=== PATIENT | female | born 1950 | race Native Hawaiian/Other Pacific Islander ===

== ENCOUNTER 2017-03-16 07:57 | Outpatient (CLI) | payer OTHER ==
[~2017-03-16 07:57] MED LIST: AMIT25TA22 PO; BENZ100C8 PO; DICL1GEL2 TOP; FLUOXETINE20 M2 PO; GABA300C2 PO; LISI5TAB10 PO; NIRAVAM0.5 MG PO; NUCYNTA50 MG PO; TEMA30CA18 PO; TIZA4TAB5 PO; TRAZ50TA36 PO; XODOL PO
== END 2017-03-16 09:00 | disposition home or self-care (01) ==
LOC: CT 07:57
DX: R10.815 Periumbilic abdominal tenderness (principal)

== ENCOUNTER 2017-11-24 13:10 | Outpatient (CLI) | payer OTHER | END 2017-11-24 22:19 | disposition home or self-care (01) | LOC: RAD 13:10 | DX: R07.81 Pleurodynia (principal) ==

== ENCOUNTER 2017-12-12 21:17 | Observation (INO) | payer OTHER ==
[~2017-12-12] VITALS: Ht 152.4 cm; Wt 76.8 kg
[2017-12-12 21:29] VITALS: BP 124/89; TEMP 98.2
[2017-12-12 21:47] LABS: PLATELET COUNT 350 K/uL (152-353)
[2017-12-12 21:56] LABS: POTASSIUM 3.7 mmol/L (3.6-5.2); SODIUM 137 mmol/L (136-145)
[2017-12-12 22:08] LABS: PARTIAL THROMBOPLASTIN TIME 23.5 SECONDS (24.5-33.6)
[2017-12-12] MEDS ORDERED: GABA300C2 PO (23:05)
[2017-12-12 23:10] VITALS: BP 99/65; TEMP 98
[2017-12-13 00:37] VITALS: BP 97/70; TEMP 97.8; Ht 152.4 cm; Wt 76.8 kg
--- NOTE | 2017-12-13 01:06 | NUR ---
12/12/17 2322 TO ROOM 1107 PLACED IN BED VITAL SIGNS OBTAINED SALINE LOCK INTACT TO RIGHT AC 20GAUDGE.PT SAID HER PAIN IS BETTER BUT IS STILL HAVING SOME PAIN 3 ON SCALE 1- 10 UNDER LEFT BREAST.PT SAID SHE IS READY TO GO HOME NOW.EXPLAINED TO PT THAT SHE CAN SPEAK WITH PHYSICAN IN THE MORNING IF EVERYTHING CHECKS OUT SHE MAY GET TO GO THEN.PT VERBALIZED UNDERSTANDING.CC
[2017-12-13 04:00] VITALS: BP 115/76; TEMP 97.6
[2017-12-13 08:00] VITALS: BP 115/72; TEMP 98.6
== END 2017-12-13 16:10 | disposition home or self-care (01) ==
LOC: ED 21:17 → MED/SURG 22:49
DX: R07.89 Other chest pain (principal); I25.10 Atherosclerotic heart disease of native coronary artery without angina pectoris; R06.02 Shortness of breath; R10.11 Right upper quadrant pain; D72.828 Other elevated white blood cell count
CPT/HCPCS: 36415; 80053; 82550; 84484; 85027; 85610; 85730; 93005; 96365; 96372; 99220; 99283; G0378; J1650; J2270

== ENCOUNTER 2018-01-21 15:53 | Outpatient (CLI) | payer OTHER | END 2018-01-21 19:10 | disposition home or self-care (01) | LOC: LAB 15:53 | DX: K59.1 Functional diarrhea (principal); R10.13 Epigastric pain | CPT/HCPCS: 82705; 87015; 87045; 87205; 87324; 87328; 87329; 87338; 87449; 87899 ==

== ENCOUNTER 2018-03-28 10:47 | Outpatient (CLI) | payer OTHER | END 2018-03-28 22:49 | disposition home or self-care (01) | LOC: CT 10:47 | DX: M54.5 Low back pain (principal); M79.7 Fibromyalgia; M54.16 Radiculopathy, lumbar region ==

== ENCOUNTER 2018-08-25 08:56 | Outpatient (CLI) | payer OTHER | END 2018-08-25 19:47 | disposition home or self-care (01) | LOC: US 08:56 | DX: E03.8 Other specified hypothyroidism (principal) ==

== ENCOUNTER 2019-02-21 09:40 | Outpatient (CLI) | payer OTHER | END 2019-02-21 22:23 | disposition home or self-care (01) | LOC: RAD 09:40 | DX: R13.19 Other dysphagia (principal) ==

== ENCOUNTER 2019-04-05 14:47 | Emergency (ER) | payer OTHER ==
[~2019-04-05] VITALS: Ht 152.4 cm; Wt 73.5 kg
[2019-04-05 16:03] LABS: PLATELET COUNT 313 K/uL (152-353)
[2019-04-05 16:11] LABS: POTASSIUM 3.8 mmol/L (3.6-5.2)
[2019-04-05 17:10] VITALS: BP 154/89; TEMP 97.8
== END 2019-04-05 17:10 | disposition home or self-care (01) ==
LOC: ED 14:47
PROVIDERS: Hospitalist
DX: M54.5 Low back pain (principal); R10.32 Left lower quadrant pain
CPT/HCPCS: 36415; 80053; 81000; 85027; 96360; 96375; 99284; J1885; J2270; J2405

== ENCOUNTER 2019-05-28 12:58 | Outpatient (CLI) | payer OTHER | END 2019-05-28 20:39 | disposition home or self-care (01) | LOC: RAD 12:58 | DX: R60.0 Localized edema (principal) ==

== ENCOUNTER 2019-06-07 17:02 | Emergency (ER) | payer OTHER ==
[~2019-06-07] VITALS: Ht 152.4 cm; Wt 73.5 kg
[2019-06-07 17:14] VITALS: TEMP 98.6
[2019-06-07 18:04] VITALS: BP 124/72
== END 2019-06-07 18:10 | disposition home or self-care (01) ==
LOC: ED 17:02
DX: M79.672 Pain in left foot (principal); M79.671 Pain in right foot; W20.8XXA Other cause of strike by thrown, projected or falling object, initial encounter; Y92.512 Supermarket, store or market as the place of occurrence of the external cause
CPT/HCPCS: 96372; 99283; J1885

== ENCOUNTER 2019-10-03 14:17 | Outpatient (CLI) | payer OTHER | END 2019-10-03 19:37 | disposition home or self-care (01) | LOC: MAMMO 14:17 | DX: R92.8 Other abnormal and inconclusive findings on diagnostic imaging of breast (principal); N63.20 Unspecified lump in the left breast, unspecified quadrant ==

== ENCOUNTER 2020-01-04 15:15 | Outpatient (CLI) | payer OTHER | END 2020-01-04 19:30 | disposition home or self-care (01) | LOC: RAD 15:15 | DX: M19.072 Primary osteoarthritis, left ankle and foot (principal) ==

== ENCOUNTER 2020-04-09 11:21 | Day surgery (SDC) | payer OTHER ==
[2020-04-09 12:06] LABS: PLATELET COUNT 361 K/uL (152-353)
== END 2020-04-09 14:37 | disposition home or self-care (01) ==
LOC: OR 11:21
PROVIDERS: Internal Medicine Gastroenterology
PROC: 0DB68ZZ Excision of Stomach, Via Natural or Artificial Opening Endoscopic (ICD-10-PCS; principal; 2020-04-09)
PROC: 0DB88ZZ Excision of Small Intestine, Via Natural or Artificial Opening Endoscopic (ICD-10-PCS; 2020-04-09)
PROC: 0D738ZZ Dilation of Lower Esophagus, Via Natural or Artificial Opening Endoscopic (ICD-10-PCS; 2020-04-09)
DX: K22.10 Ulcer of esophagus without bleeding (principal); K21.0 Gastro-esophageal reflux disease with esophagitis; K22.2 Esophageal obstruction; K44.9 Diaphragmatic hernia without obstruction or gangrene; K25.9 Gastric ulcer, unspecified as acute or chronic, without hemorrhage or perforation; K29.50 Unspecified chronic gastritis without bleeding; R13.19 Other dysphagia; R11.2 Nausea with vomiting, unspecified; R10.13 Epigastric pain
CPT/HCPCS: 80053; 85027; J2704

== ENCOUNTER 2020-04-30 13:31 | Outpatient (CLI) | payer OTHER | END 2020-04-30 20:27 | disposition home or self-care (01) | LOC: LAB 13:31 | DX: R10.9 Unspecified abdominal pain (principal); R14.0 Abdominal distension (gaseous); Z86.19 Personal history of other infectious and parasitic diseases; R11.2 Nausea with vomiting, unspecified | CPT/HCPCS: 36415; 80074; 83735; 86318 ==

== ENCOUNTER 2020-05-09 08:27 | Outpatient (CLI) | payer OTHER | END 2020-05-09 19:39 | disposition home or self-care (01) | LOC: CT 08:27 | PROVIDERS: ATTEND Family Medicine | DX: R14.0 Abdominal distension (gaseous) (principal); E03.4 Atrophy of thyroid (acquired); R10.9 Unspecified abdominal pain ==

== ENCOUNTER 2020-07-08 09:51 | Outpatient (CLI) | payer OTHER ==
[2020-07-08 10:22] LABS: PLATELET COUNT 337 K/uL (152-353)
[2020-07-08 10:35] LABS: POTASSIUM 4.3 mmol/L (3.6-5.2)
== END 2020-07-08 20:26 | disposition home or self-care (01) ==
LOC: LABW 09:51
PROVIDERS: Family Medicine
DX: E03.8 Other specified hypothyroidism (principal); R19.4 Change in bowel habit; R60.0 Localized edema; E55.9 Vitamin D deficiency, unspecified
CPT/HCPCS: 36415; 80053; 80061; 82306; 83735; 84436; 84443; 84479; 85027

== ENCOUNTER 2020-08-19 01:53 | Emergency (ER) | payer OTHER ==
[~2020-08-19] VITALS: Ht 152.4 cm; Wt 73.5 kg
[2020-08-19 03:45] VITALS: BP 106/55; TEMP 98
== END 2020-08-19 03:45 | disposition home or self-care (01) ==
LOC: ED 01:53
DX: T78.49XA Other allergy, initial encounter (principal)
CPT/HCPCS: 94664; 96360; 96375; 99284; J1100; J1200

== ENCOUNTER 2020-11-06 10:09 | Outpatient (CLI) | payer OTHER | END 2020-11-06 20:44 | disposition home or self-care (01) | LOC: RAD 10:09 | PROVIDERS: ATTEND Nurse Practitioner Family | DX: N95.8 Other specified menopausal and perimenopausal disorders (principal); M19.90 Unspecified osteoarthritis, unspecified site ==

== ENCOUNTER 2021-03-25 10:02 | Outpatient (CLI) | payer OTHER | END 2021-03-25 23:02 | disposition home or self-care (01) | LOC: RESP 10:02 | PROVIDERS: ATTEND Specialist | DX: R06.02 Shortness of breath (principal) ==

== ENCOUNTER 2022-07-22 12:41 | Outpatient (CLI) | payer OTHER | END 2022-07-22 19:16 | disposition home or self-care (01) | LOC: US 12:41 | PROVIDERS: ATTEND Nurse Practitioner Family | DX: E04.1 Nontoxic single thyroid nodule (principal) ==

== ENCOUNTER 2022-08-10 09:19 | Emergency (ER) | payer OTHER ==
[~2022-08-10] VITALS: Ht 152.4 cm; Wt 73.5 kg
[2022-08-10 09:31] VITALS: BP 148/79; TEMP 99.1
== END 2022-08-10 10:23 | disposition home or self-care (01) ==
LOC: ED 09:19
DX: S70.11XA Contusion of right thigh, initial encounter (principal); S70.01XA Contusion of right hip, initial encounter; S00.83XA Contusion of other part of head, initial encounter; S06.0X0A Concussion without loss of consciousness, initial encounter; W17.89XA Other fall from one level to another, initial encounter; Y92.098 Other place in other non-institutional residence as the place of occurrence of the external cause
CPT/HCPCS: 96372; 99283; J2270; J2550

== ENCOUNTER 2022-12-21 10:09 | Outpatient (CLI) | payer OTHER ==
[2022-12-21 10:26] LABS: PLATELET COUNT 338 K/uL (152-353)
[2022-12-21 10:30] LABS: POTASSIUM 4.2 mmol/L (3.6-5.2)
== END 2022-12-21 20:29 | disposition home or self-care (01) ==
LOC: LABW 10:09
PROVIDERS: ATTEND Nurse Practitioner Family
DX: I10 Essential (primary) hypertension (principal)
CPT/HCPCS: 36415; 80053; 82550; 82553; 84484; 85027

== ENCOUNTER 2023-01-23 09:51 | Emergency (ER) | payer OTHER ==
[~2023-01-23] VITALS: Ht 149.9 cm; Wt 72.6 kg
[2023-01-23 10:00] VITALS: TEMP 97.9
[2023-01-23 11:00] LABS: PLATELET COUNT 335 K/uL (152-353)
[2023-01-23 11:14] LABS: POTASSIUM 4.4 mmol/L (3.6-5.2)
[2023-01-23 15:01] VITALS: BP 136/84
== END 2023-01-23 16:39 | disposition home or self-care (01) ==
LOC: ED 09:51
PROVIDERS: Family Medicine
DX: K57.92 Diverticulitis of intestine, part unspecified, without perforation or abscess without bleeding (principal); R10.84 Generalized abdominal pain; R06.02 Shortness of breath
CPT/HCPCS: 80053; 81002; 82150; 83605; 83690; 83880; 84484; 85027; 85379; 93005; 96361; 96365; 96374; 99284; J2270; J2405

== ENCOUNTER 2023-01-29 07:25 | Outpatient (CLI) | payer OTHER ==
[2023-01-29 08:11] LABS: POTASSIUM 4.7 mmol/L (3.6-5.2)
[2023-01-29 08:55] LABS: PLATELET COUNT 458 K/uL (152-353)
== END 2023-01-29 19:07 | disposition home or self-care (01) ==
LOC: LABW 07:25
PROVIDERS: ATTEND Internal Medicine Cardiovascular Disease
DX: Z79.899 Other long term (current) drug therapy (principal)
CPT/HCPCS: 36415; 80053; 80061; 84443; 85007; 85027

== ENCOUNTER 2023-02-09 11:22 | Observation (INO) | payer OTHER ==
[~2023-02-09] VITALS: Ht 149.9 cm; Wt 76.2 kg
[2023-02-09 11:22] VITALS: BP 150/82; TEMP 98.1
[~2023-02-09 11:22] MED LIST changes: +GABA400C2 PO
[2023-02-09 12:04] LABS: PLATELET COUNT 240 K/uL (152-353)
[2023-02-09 12:13] LABS: POTASSIUM 4.1 mmol/L (3.6-5.2)
[2023-02-09 12:40] VITALS: BP 92/61
[2023-02-09 15:34] VITALS: BP 115/64; TEMP 98.9; Ht 149.9 cm; Wt 76.2 kg
[2023-02-09] MEDS ORDERED: ELIQUIS5 MG PO (15:39)
[2023-02-09] MEDS ORDERED: LISI5TAB10 PO (15:40)
[2023-02-09] MEDS ORDERED: QUETIAPINE50 MG PO (15:40)
[2023-02-09] MEDS ORDERED: NORCO 10/325***1 TAB PO (15:40)
[2023-02-09] MEDS ORDERED: MONT10TA PO (15:41)
[2023-02-09 20:00] VITALS: BP 124/64; TEMP 97.7
[2023-02-10] VITALS: BP 106/57; TEMP 98.1
[2023-02-10 04:00] VITALS: BP 122/62; TEMP 98.1
[2023-02-10 05:03] LABS: PLATELET COUNT 197 K/uL (152-353)
[2023-02-10 05:29] LABS: POTASSIUM 3.7 mmol/L (3.6-5.2)
[2023-02-10 08:00] VITALS: BP 113/66; TEMP 97.3
[2023-02-10 12:00] VITALS: BP 117/59; TEMP 97.7
[2023-02-10 16:00] VITALS: BP 117/60; TEMP 98
[2023-02-10 20:00] VITALS: BP 111/66; TEMP 98.2
[2023-02-11] VITALS: BP 119/63; TEMP 98.3
[2023-02-11 04:00] VITALS: BP 104/51; TEMP 98.5
[2023-02-11 07:57] VITALS: BP 133/70; TEMP 98
[2023-02-11] MEDS ORDERED: AZIT250T3 PO (09:44)
[2023-02-11] MEDS ORDERED: BUSPIRONE10 MG PO (09:44)
[2023-02-11] MEDS ORDERED: PRED20TA27 PO (09:44)
[2023-02-11] MEDS ORDERED: [UNRECOGNIZED DRUG - OTHER] PO (09:49)
[2023-02-11] MEDS ORDERED: [UNRECOGNIZED DRUG - CODE] PO (10:27)
== END 2023-02-11 10:47 | disposition home or self-care (01) ==
LOC: ED 11:22 → MED/SURG 13:35
PROVIDERS: ADMIT Emergency Medicine Emergency Medical Services; ATTEND Internal Medicine
DX: J18.9 Pneumonia, unspecified organism (principal); T59.81 Toxic effect of smoke; J44.1 Chronic obstructive pulmonary disease with (acute) exacerbation; I48.91 Unspecified atrial fibrillation; Z79.01 Long term (current) use of anticoagulants; F41.9 Anxiety disorder, unspecified; R07.89 Other chest pain; R06.02 Shortness of breath; R05.3 Chronic cough
CPT/HCPCS: 36415; 80053; 83605; 83735; 83880; 84439; 84443; 84484; 85027; 85610; 85730; 87040; 87070; 87077; 87205; 87502; 87635; 93005; 94664; 94760; 96361; 96365; 96367; 96374; 96375; 96376; 99221; 99284; G0378; J0456; J0696; J2405; J2920; J2930; U0003

== ENCOUNTER 2023-06-22 10:36 | Observation (INO) | payer OTHER ==
[~2023-06-22] VITALS: Ht 149.9 cm; Wt 75.9 kg
[~2023-06-22 10:36] MED LIST changes: +AZIT250T3 PO; +BUSPIRONE10 MG PO; +ELIQUIS5 MG PO; +MONT10TA PO; +NORCO 10/325***1 TAB PO; +PRED20TA27 PO; +QUETIAPINE50 MG PO; +[UNRECOGNIZED DRUG - CODE] PO; +[UNRECOGNIZED DRUG - OTHER] PO
[2023-06-22 10:40] VITALS: BP 134/74; TEMP 98.2
[2023-06-22 11:12] LABS: PLATELET COUNT 299 K/uL (152-353)
[2023-06-22 11:24] LABS: PARTIAL THROMBOPLASTIN TIME 33.4 SECONDS (23.9-36.7)
[2023-06-22 11:25] LABS: POTASSIUM 4.2 mmol/L (3.6-5.2)
[2023-06-22 14:40] VITALS: BP 129/60; TEMP 97.7
[2023-06-22 17:13] VITALS: BP 129/60; TEMP 97.7; Ht 149.9 cm; Wt 75.9 kg
[2023-06-22] MEDS ORDERED: XARELTO20 MG PO (18:43)
[2023-06-22] MEDS ORDERED: PERCOCET1 TA3 PO (18:44)
[2023-06-22] MEDS ORDERED: ROSU10TA PO (18:45)
[2023-06-22] MEDS ORDERED: FURO20TA67 PO (18:46)
[2023-06-22] MEDS ORDERED: SPIRONOLACT25 MG PO (18:46)
[2023-06-22] MEDS ORDERED: HYDROCHLOROT12.5 M1 PO (18:51)
[2023-06-22] MEDS ORDERED: ALPR0.2566 PO (18:52)
[2023-06-22] MEDS ORDERED: TIZANIDINE HYDRO4 MG PO (18:53)
[2023-06-22 20:00] VITALS: BP 132/68; TEMP 97.8
[2023-06-23] VITALS: BP 145/73; TEMP 98.3
[2023-06-23 04:00] VITALS: BP 104/64; TEMP 98.3
[2023-06-23 07:41] VITALS: BP 106/55; TEMP 97.7
== END 2023-06-23 10:48 | disposition home or self-care (01) ==
LOC: ED 10:36 → MED/SURG 12:56
PROVIDERS: ADMIT Family Medicine; ATTEND Internal Medicine
DX: R07.89 Other chest pain (principal); I48.91 Unspecified atrial fibrillation; E78.49 Other hyperlipidemia; G62.89 Other specified polyneuropathies; F41.8 Other specified anxiety disorders; G89.4 Chronic pain syndrome; Z79.01 Long term (current) use of anticoagulants
CPT/HCPCS: 36415; 80053; 80307; 81000; 82550; 83690; 84484; 85027; 85610; 85730; 93005; 99221; 99284; G0378; J1650; J2270

== ENCOUNTER 2023-08-05 09:22 | Outpatient (CLI) | payer OTHER ==
[~2023-08-05 09:22] MED LIST changes: +ALPR0.2566 PO; +FURO20TA67 PO; +HYDROCHLOROT12.5 M1 PO; +PERCOCET1 TA3 PO; +ROSU10TA PO; +SPIRONOLACT25 MG PO; +TIZANIDINE HYDRO4 MG PO; +XARELTO20 MG PO
== END 2023-08-05 19:23 | disposition home or self-care (01) ==
LOC: MAMMO 09:22
PROVIDERS: ATTEND Nurse Practitioner Family
DX: N63.31 Unspecified lump in axillary tail of the right breast (principal)
CPT/HCPCS: G0279